=== PATIENT | male | born 1955 | race Caucasian/White ===

== ENCOUNTER 2019-02-08 08:36 | Outpatient (CLI) | payer OTHER ==
[2019-02-08 08:59] LABS: A1C 8.6 % (<5.7)
[2019-02-08 09:19] LABS: HDL 45 mg/dL (>40); eGFR (Non-African) > 60
== END 2019-02-08 08:41 ==
LOC: LAB 08:36
PROVIDERS: ATTEND Nurse Practitioner Family
DX: E11.9 Type 2 diabetes mellitus without complications (principal)
CPT/HCPCS: 36415; 80053; 80061; 83036; 85025